=== PATIENT | female | born 1960 | race Caucasian/White ===

== ENCOUNTER 2020-12-02 22:58 | Emergency (ER) | payer OTHER, SELFPAY ==
--- NOTE | ~2020-12-02 | CT_ITS ---
EXAMINATION: CT abdomen pelvis wo con DATE: 12/02/2020 23:48 INDICATION: Right flank pain. TECHNIQUE: Computed tomography (CT) of the abdomen and pelvis was performed without intravenous contr ast. Automated exposure control and iterative reconstruction technique were employed. The dose-length product was 569.34 mGy-cm. COMPARISON: None. FINDINGS: The visualized portions of the lung bases demonstrate mild atelectasis. No pleural effusion . The heart size is normal. No pericardial effusion. The liver is normal. There are gallstones in the gallbladder, which is normal in size. The spleen, pancreas, and adrenal glands are normal. There is a 9 mm calcification in right kidney. There are no dilated loops of bowel. The appendix is normal. Th ere are no pathologically enlarged lymph nodes. There is no free intraperitoneal fluid. There is a sm all umbilical hernia containing fat. There is mild lumbar spondylosis. IMPRESSION: 1. Cholelithiasis. No evidence of acute cholecystitis. 2. 9 mm calcification at the hilum of right kidney, that may be parenchymal. 3. Small umbilical hernia containing fat. Reviewed, dictated and finalized at location A.
--- NOTE | ~2020-12-02 | XR_ITS ---
EXAMINATION: XR knee LT 3V DATE: 12/02/2020 23:54 INDICATION: Left knee pain TECHNIQUE: Three views of the left knee were obtained. COMPARISON: None. FINDINGS: Alignment is normal. No fracture or osteochondral lesion. There is mild tricompartmental os teoarthritis characterized by tiny marginal osteophytes. No joint effusion/synovitis. Soft tissues a re unremarkable. IMPRESSION: 1. No acute osseous abnormality. Reviewed, dictated and finalized at location A.
[2020-12-02 23:02] VITALS: BP 141/80; PULSE 71; RESP 17; TEMP 36.7; O2SAT 99
[2020-12-02] MEDS: ONDANSETRON INJ 4 MG/2 ML VIAL IV PUSH (23:33)
[2020-12-02] MEDS: KETOROLAC 30 MG/ML VIAL (*BKC) 15 MG IV PUSH (23:33)
--- NOTE | 2020-12-02 23:37 | PC.NURSE ---
Patient states she does not want the dilaudid at this time. Patient also taken to CT via stretcher.
[2020-12-02 23:39] LABS: Basophils Absolute Auto 0.1 K/mm3 (0.0-0.1); Basophils Percent Auto 0.9 % (0.2-1.2); Eosinophils Absolute Auto 0.1 K/mm3 (0-0.3); Eosinophils Percent Auto 2.1 % (0-4.4); Hematocrit 36.4 % (37.0-47.0); Hemoglobin 11.9 g/dL (12.0-15.0); Immature Granulocyte Absolute 0.01 K/mm3 (0.00-0.031); Immature Granulocyte Percent A 0.2 % (0-0.5); Lymphocytes Absolute Auto 2.33 K/mm3 (0.9-3.2); Mean Corpuscular HGB Conc 32.7 g/dl (32-36); Mean Corpuscular Hemoglobin 29.3 pg (26-34); Mean Corpuscular Volume 89.7 fl (80-100); Monocytes Absolute Auto 0.4 K/mm3 (0.1-0.6); Monocytes Percent Auto 7.9 % (2.6-8.5); Neutrophils Absolute Auto 2.4 K/mm3 (1.3-6.7); Neutrophils Percent Auto 44.9 % (45.5-73.1); Platelet Count Result 207 k/mm3 (150-375); Red Blood Count 4.06 M/mm3 (4.2-5.4); Red Cell Distribution Width 12.8 % (11.5-14.5); White Blood Count 5.3 K/mm3 (4.5-10.0)
[2020-12-02 23:52] LABS: Alanine Aminotransferase 21 U/L (4-35); Albumin Level 3.9 g/dL (3.5-5.1); Alkaline Phosphatase 74 U/L (38-126); Anion Gap 8 mmol/L (8-16); Aspartate Amino Transferase 26 U/L (14-36); Bilirubin,Total 0.5 mg/dL (0.2-1.3); Blood Urea Nitrogen 20 mg/dL (7-17); Calcium 9.2 mg/dL (8.4-10.2); Carbon Dioxide 26 mmol/L (22-30); Chloride 104 mmol/L (98-107); Estimated CRCL calculation 59 ml/min; Estimated Glomerular Filt Rate > 60; Glucose 103 mg/dL (65-110); Potassium 3.6 mmol/L (3.4-5.0); Sodium 138 mmol/L (137-145)
--- NOTE | 2020-12-03 00:04 | ED.GENADULT ---
HPI - General Adult General Chief complaint: Extremity Injury, Lower Stated complaint: Right sided buttocks/leg/back pain Time Seen by Provider: 12/02/20 23:08 History of Present Illness HPI narrative: Patient is a 60-year-old female presents to the emergency department with chief complaint of right lower extremity pain. The patient reports that she has pain in her right flank area that shoots down into her right gluteal region. Patient states the pain shoots down her right leg she also reports she is had pain in her left knee. The patient denies trauma denies fever denies chills denies vomiting or diarrhea. Patient does report that she has had a stone before in the past as concerns may be a kidney stone or this could be sciatica. The patient denies bowel or bladder incontinence denies paresthesias denies foot drop. Related Data Home Medications Medication Instructions Recorded Confirmed aspirin 12/02/20 fluticasone propionate [Xhance] INTRANASAL 12/02/20 omeprazole 12/02/20 paroxetine HCl mg PO 12/02/20 Allergies Allergy/AdvReac Type Severity Reaction Status Date / Time latex Allergy Severe RESPIRATORY Verified 12/02/20 23:56 DISTRESS amoxicillin Allergy Intermediate RASH Verified 12/02/20 23:56 baclofen Allergy Intermediate RASH Verified 12/02/20 23:56 divalproex sodium Allergy Intermediate HIVES Verified 12/02/20 23:56 Sulfa (Sulfonamide Allergy Intermediate RASH Verified 12/02/20 23:56 Antibiotics) Review of Systems Review of Systems: A 10 system review of systems was completed on the patient and is negative except for what is stated in the HPI. Nursing and ancillary documentation was reviewed. [facility] Past Medical History Medical History History of stroke Family History Family History Mother Hypertension Sibling Hypertension Asthma Family history of arthritis Social History Social History Smoking status: Never smoker Alcohol intake: current Exam Narrative: GENERAL: Well-appearing, well-nourished, and in no acute distress. HEAD: Normocephalic, atraumatic. EYES: PERRLA and EOMI. ENT: Nares clear, no rhinorrhea or epistaxis. Mucous membranes moist. NECK: Supple. CHEST: Clear to auscultation. No respiratory distress. HEART: Regular rate and rhythm. No murmur heard. Normal peripheral pulses. ABDOMEN: Soft, nontender, nondistended, normal active bowel sounds. EXTREMITIES: Normal range of motion. No edema. There is tenderness to palpation of the SI joint on the right side SKIN: Warm, dry, no rash. NEURO: No focal deficits. Alert and oriented x3. PSYCH: Normal mood and affect. Course Vital Signs Vital signs: Vital Signs Temperature 36.7 C 12/02/20 23:02 Pulse Rate 71 12/02/20 23:02 Respiratory Rate 17 12/02/20 23:02 Blood Pressure 141/80 H 12/02/20 23:02 Pulse Oximetry 99 12/02/20 23:02 Temperature 36.7 C 12/02/20 23:02 Pulse Rate 71 12/02/20 23:02 Respiratory Rate 17 12/02/20 23:02 Blood Pressure 141/80 H 12/02/20 23:02 Pulse Oximetry 99 12/02/20 23:02 Medical Decision Making Vital Signs Vital Signs: Vital Signs Temperature 36.7 C 12/02/20 23:02 Pulse Rate 71 12/02/20 23:02 Respiratory Rate 17 12/02/20 23:02 Blood Pressure 141/80 H 12/02/20 23:02 Pulse Oximetry 99 12/02/20 23:02 Temperature 36.7 C 12/02/20 23:02 Pulse Rate 71 12/02/20 23:02 Respiratory Rate 17 12/02/20 23:02 Blood Pressure 141/80 H 12/02/20 23:02 Pulse Oximetry 99 12/02/20 23:02 Lab Data Result diagrams: 12/02/20 23:31 12/02/20 23:31 Labs: Lab Results 12/02/20 12/02/20 12/03/20 Range/Units 23:31 23:31 00:41 WBC 5.3 (4.5-10.0) K/mm3 RBC 4.06 L (4.2-5.4) M/mm3 Hgb 11.9 L (12.0-15.0) g/
--- NOTE | 2020-12-03 00:20 | PC.NURSE ---
Patient aware of need for urine specimen, unable to provide one at this time. Patient refusing straight cath. A/Ox4.
[2020-12-03 00:49] LABS: Add Urine Microscopic? NO; Appearance Urine Clear (Clear); Bilirubin Urine Negative (Negative); Blood Urine Negative (Negative); Color Urine Colorless (Yellow); Glucose Urine UA Negative (Negative); Ketones Urine Negative (Negative); Leukocyte Esterase Ur Negative LEU/UL (Negative); Nitrate Urine Negative (Negative); Protein Urine Negative (Negative); Specific Grav Ur 1.006 (1.001-1.035); Urobilinogen Urine Negative mg/dL (<2.0)
[2020-12-03] MEDS: HYDROcodone/acetaminophen (*CRX) 5-325 MG TABLET 1 TAB PO (00:59)
[2020-12-03 01:06] VITALS: BP 128/76; PULSE 68; RESP 18; TEMP 36.8; O2SAT 98
== END 2020-12-03 01:08 | disposition home or self-care (01) ==
PROVIDERS: Emergency Provider Emergency Medicine
DX: M54.31 Sciatica, right side (principal); Z79.82 Long term (current) use of aspirin; Z86.73 Personal history of transient ischemic attack (TIA), and cerebral infarction without residual deficits
CPT/HCPCS: 36415; 73562; 74176; 80053; 81003; 85025; 96374; 96375; 99284; A9270; J1885; J2405

== ENCOUNTER 2022-06-11 12:31 | Outpatient (CLI) | payer OTHER, SELFPAY ==
--- NOTE | ~2022-06-11 | MM_ITS ---
EXAMINATION: MM screening mark BI w mayank HISTORY: Screening mammogram TECHNIQUE: Craniocaudal and mediolateral oblique 3-D tomosynthesis images were obtained and synthetic 2-D images were generated. CAD analysis was submitted and interpreted. COMPARISON: No prior mammogram is available for comparison at this institution. BREAST PARENCHYMAL COMPOSITION: The breasts are heterogeneously dense, which may obscure small masses . FINDINGS: RIGHT BREAST: No suspicious mass, calcification, or architectural distortion are identified to sugges t malignancy. LEFT BREAST: There is possible architectural distortion at the anterior fibroglandular margin in the middle third of the outer breast best appreciated 6.5 cm from the nipple on the craniocaudal view. IMPRESSION: 1. Possible left breast architectural distortion which may represent the patient's baseline however n o comparison is currently available. 2. Comparison with prior mammograms is necessary. BI-RADS Category 0: Incomplete: Needs comparison with prior mammograms. Reviewed, dictated and finalized at location A. IMPRESSION: 1. Possible left breast architectural distortion which may represent the patien t's baseline however no comparison is currently available. 2. Comparison with prior mammograms is necessary. BI-RADS Category 0: Incomplete: Needs comparison with prior mammograms.
== END 2022-06-11 12:32 | disposition home or self-care (01) ==
PROVIDERS: PCP Internal Medicine; Visit Provider Obstetrics & Gynecology
DX: Z12.31 Encounter for screening mammogram for malignant neoplasm of breast (principal); R92.8 Other abnormal and inconclusive findings on diagnostic imaging of breast
CPT/HCPCS: 77063; 77067

== ENCOUNTER 2022-09-13 18:33 | Emergency (ER) | payer OTHER, SELFPAY ==
--- NOTE | ~2022-09-13 | CT_ITS ---
Non-contrast CT scan of the Abdomen and Pelvis Clinical indication: Right flank pain Technique: 2.5 mm axial scans were obtained through the abdomen and pelvis without intravenous or or al contrast. Dose reduction technique was used on this scan by utilizing automated exposure control a nd iterative reconstruction technique. The dose-length product (DLP) was 559.61 mGy-cm. COMPARISON: 12/02/2020 Findings: Images through the lung bases reveal no abnormalities. Nonobstructing right renal stone present. No ureteral stone or hydronephrosis on either side. The liver, spleen, pancreas, and adrenals appear normal. Multiple gallstones are present. There is no aortic aneurysm. Possible mild wall thickening and pericolic inflammatory change at the ascending colon. Appendix is u nremarkable. No abscess or free air. No bowel obstruction. Images through the pelvis were performed. There is no evidence of ascites or lymphadenopathy. Urinary bladder unremarkable. No adnexal mass seen. No ascites. Impression: Suspected mild infectious/inflammatory colitis of the ascending colon. No bowel obstruction, abscess, or free air. Normal appendix. Cholelithiasis. Small nonobstructing right renal stone. No ureteral stones or hydronephrosis. Reviewed, dictated and finalized at location . Impression: Suspected mild infectious/inflammatory colitis of the ascending colon. No bowel obstruction, abscess, or free air. Normal appendix. Cholelithiasis. Small nonobstructing right renal stone. No ureteral stones or hydronephrosis.
[2022-09-13 18:36] VITALS: BP 133/69; PULSE 77; RESP 18; TEMP 36.3; O2SAT 98
[2022-09-13] MEDS: KETOROLAC 30 MG/ML VIAL (*BKC) IM (19:48)
--- NOTE | 2022-09-13 20:04 | ED.BACK ---
HPI - Back Pain/Injury General Chief Complaint: Back Pain/Injury Stated Complaint: R BACK PAIN X1D Time Seen by Provider: 09/13/22 19:03 History of Present Illness HPI Narrative: Patient presents with pain in her right lower back going into her hip, she has had similar pain for years and had tried taking an oxycodone, naproxen, muscle relaxant, nothing helped. She has seen orthopedic surgeon for injections in the past no focal numbness or weakness or tingling., No abdominal pain or chest pain or personal or family history of aneurysms or dissections. Was told 30 years ago that she had kidney stones but nothing came out of it. Related Data Home Medications Medication Instructions Recorded Confirmed aspirin 81 mg chewable tablet 12/02/20 fluticasone propionate 93 intranasal 12/02/20 mcg/actuation breath activated aerosol (Xhance) omeprazole 20 mg capsule,delayed 12/02/20 release paroxetine HCl 20 mg tablet mg PO 12/02/20 Allergies Allergy/AdvReac Type Severity Reaction Status Date / Time latex Allergy Severe RESPIRATORY Verified 09/13/22 18:57 DISTRESS amoxicillin Allergy Intermediate RASH Verified 09/13/22 18:57 baclofen Allergy Intermediate RASH Verified 09/13/22 18:57 divalproex sodium Allergy Intermediate HIVES Verified 09/13/22 18:57 Sulfa (Sulfonamide Allergy Intermediate RASH Verified 09/13/22 18:57 Antibiotics) Review of Systems Review of Systems: CONST: No fever. HEENT: No sore throat C/V: No chest pain RESP: No cough GI: No abdominal pain, nausea or vomiting : No urinary retention M/S: Right lower back pain SKIN: No rash. NEURO: [No headache or focal numbness or weakness] PSYCH: [No depression] [facility] Past Medical History Medical History History of stroke Family History Family History Mother Hypertension Sibling Hypertension Asthma Family history of arthritis Social History Social History Smoking status: Never smoker Alcohol intake: current Exam Narrative: EXAMINATION OF ORGAN SYSTEMS/BODY AREAS: Constitutional: Vital signs per nursing GENERAL: Able to rest comfortably in certain positions but when sitting up and with turning, winces HEAD: Normal with no signs of head trauma. EYES: EOMI, conjunctiva normal ENT: Hearing grossly intact LUNGS: Nonlabored breathing. HEART: [Regular rate and rhythm] ABD: [Soft], [nontender to palpation] EXT: Normal range of motion. No severe pain with passive flexion/extension of right hip, normal bilateral DP pulses SKIN: [No rashes or lesions.] NEURO: [Alert and oriented x 3. No gross focal sensory or strength deficits.] PSYCH: Normal affect Course Vital Signs Vital signs: Vital Signs Temperature 97.4 F L 09/13/22 18:36 Pulse Rate 77 09/13/22 18:36 Respiratory Rate 18 09/13/22 18:36 Blood Pressure 133/69 09/13/22 18:36 Pulse Oximetry 98 09/13/22 18:36 Oxygen Delivery Room Air 09/13/22 18:36 Temperature 97.4 F L 09/13/22 18:36 Pulse Rate 77 09/13/22 18:36 Respiratory Rate 18 09/13/22 18:36 Blood Pressure 133/69 09/13/22 18:36 Pulse Oximetry 98 09/13/22 18:36 Oxygen Delivery Room Air 09/13/22 18:36 MDM - Back Pain/Injury MDM Narrative Medical decision making narrative: ED COURSE AND MEDICAL DECISION MAKINF with history of chronic joint pain presenting with acute right lower back pain. Normal motor and sensory exam. Patient able to ambulate. No evidence of acute cord compression, osteomyelitis/discitis or cauda equina without saddle anesthesia, urinary retention/incontinence, numbness/tingling in lower extremities, fever, history of IV drug use, cancer or immunosuppression. Doubt AAA or aortic dissection without severe pain/discomfort or any neurovascular deficits. [Ke
== END 2022-09-13 20:58 | disposition home or self-care (01) ==
PROVIDERS: Emergency Provider Emergency Medicine
DX: M54.50 Low back pain, unspecified (principal); M79.604 Pain in right leg; Z86.73 Personal history of transient ischemic attack (TIA), and cerebral infarction without residual deficits; Z79.82 Long term (current) use of aspirin; K80.20 Calculus of gallbladder without cholecystitis without obstruction; R93.3 Abnormal findings on diagnostic imaging of other parts of digestive tract; N20.0 Calculus of kidney
CPT/HCPCS: 74176; 96372; 99284; J1885